=== PATIENT | male | born 1955 | race Caucasian/White ===

== ENCOUNTER 2021-08-21 10:21 | Day surgery (SDC) | payer MEDICARE, OTHER ==
[2021-08-20 12:48] VITALS: BMI 28.5
[~2021-08-21 10:21] MED LIST: LACTATED RINGERS 1,000 ML IV SCH; LIDOCAINE 1% (10MG/ML) FOR IV START INTRADERMA PRN
[2021-08-21 11:30] LABS: Glucose,Whole Blood 92 mg/dL (75-99)
[2021-08-21 11:31] VITALS: RESP 16; TEMP 97.2
[2021-08-21] MEDS ORDERED: PROPOFOL 10 MG/ML 20 ML VIAL IV ONE (12:00)
--- NOTE | 2021-08-21 12:22 | P.PCN ---
Date of Procedure: 08/21/21 Procedure(s) Performed: BRIEF HISTORY: Patient is a 66-year-old pleasant white male scheduled for an elective colonoscopy as a part of screening for colorectal neoplasia. His brother was diagnosed with colon cancer at age 54. PROCEDURE PERFORMED: Colonoscopy with snare polypectomy. PREOPERATIVE DIAGNOSIS: Screening for edelmira cancer and family history of colon cancer. IV sedation per Anesthesia. PROCEDURE: After informed consent was obtained, the patient, was brought into the endoscopy unit. IV sedation was administered by Anesthesia under continuous monitoring. Digital rectal examination was normal. Initially the Olympus CF-160 flexible video colonoscope was then inserted in the rectum, gradually advanced into the cecum without any difficulty. Careful examination was performed as the scope was gradually being withdrawn. Ileocecal valve and the appendiceal orifice were visualized and appeared normal. Prep was excellent. Mucosa of the cecum, appeared normal. There was a 3 mm polyp in the cecum that was removed by snare polypectomy. In the ascending colon there was a 5 mm and 7 mm polyp removed by snare polypectomy. In the transverse colon there was a 3 mm and 7 mm polyps removed by snare polypectomy. Rest of the ascending colon, transverse colon, descending colon, sigmoid colon, and rectum appeared normal. scattered sigmoid diverticulosis seen. Retroflexion was performed in the rectum and no lesions were seen. The patient tolerated the procedure well. IMPRESSION: 5 mm cecal polyp status post snare polyp 5 mm ascending colon polyp status post polypectomy 3 mm and 7 mm transverse colon polyp status post polypectomy Scattered sigmoid diverticula cyst. RECOMMENDATIONS: Findings of this examination were discussed with the patient as well as his family. He was advised to follow with the biopsy results. If the biopsy will adenoma he can have a repeat colonoscopy in 3 years.
[2021-08-21 12:46] VITALS: BP 127/53; PULSE 53
== END 2021-08-21 12:53 | disposition home or self-care (01) ==
LOC: ORWHC2ENDO 10:21
PROVIDERS: ATTEND Internal Medicine Gastroenterology
DX: Z12.11 Encounter for screening for malignant neoplasm of colon (principal); D12.0 Benign neoplasm of cecum; D12.2 Benign neoplasm of ascending colon; D12.3 Benign neoplasm of transverse colon; K57.30 Diverticulosis of large intestine without perforation or abscess without bleeding; Z80.0 Family history of malignant neoplasm of digestive organs; K21.9 Gastro-esophageal reflux disease without esophagitis; Z79.899 Other long term (current) drug therapy
CPT/HCPCS: 45385; 88305; J2704

== ENCOUNTER → 2022-03-24 | Outpatient (CLI) | payer MEDICARE ==
--- NOTE | 2022-03-24 15:23 | CT ---
EXAMINATION TYPE: CT abdomen pelvis wo con DATE OF EXAM: 03/24/2022 COMPARISON: None INDICATION: blood in urine, h/o bladder CA DLP: 945 mGycm, Automated exposure control for dose reduction was used. CONTRAST: 0 mL of Isovue 300. Study performed without Oral Contrast TECHNIQUE: Axial images were obtained from above the diaphragm to the pubic rami in the axial plane a t 5 mm thick sections. Reconstructed images are reviewed on the computer in the coronal plane. FINDINGS: Limited CT sections are obtained the lung bases. The lung bases are clear. Coronary artery calcific ation is present. Minimal pericardial effusion is present. CT ABDOMEN: Liver: Normal Spleen: Normal Pancreas: Normal Adrenal glands: The adrenal glands are normal. Gallbladder: Normal Kidneys: No masses are evident. No hydronephrosis is present. No cysts are present. There is a 1.4 cm nonobstructing renal stone within the mid right kidney. There may be a nonobstructing ureteral st one within the proximal right ureter measuring 0.3 cm. In the inferior pole nonobstructing 0.3 cm rig ht renal stone is present. A nonobstructing 0.4 cm inferior pole left renal stone is present. Nonobst ructing renal stones may be within the mid left renal collecting system measuring 0.6-0.5 cm in size. Some renal artery calcification may be present. Aorta: Vascular calcification is within the aorta. Inferior vena cava: Normal. CT PELVIS: Loops of bowel within the abdomen and pelvis are normal. There are scattered diverticuli within the c olon. No suspicious adjacent inflammatory changes. This study is without oral contrast limiting bowel evaluation Appendix: Normal as visualized. Urinary bladder: Normal. No suspicious wall thickening masses or urinary bladder calcifications are i dentified. Additional workup can be performed as clinically indicated. Genitourinary structures: Prostate contains calcification. Osseous structures: No suspicious lytic or sclerotic lesions. Punctate bone island may be within the medial right iliac wing. Facet changes are noted within the lumbar spine. IMPRESSIONS: 1. Nonobstructing bilateral renal stones. 2. Diverticulosis without acute diverticulitis. 3. No suspicious changes in urinary bladder. Additional workup can be performed as clinically indicat ed.
== END | disposition home or self-care (01) ==
LOC: RADCTMAIN 14:46
PROVIDERS: ATTEND Family Medicine
DX: N20.0 Calculus of kidney (principal); K57.30 Diverticulosis of large intestine without perforation or abscess without bleeding; Z85.51 Personal history of malignant neoplasm of bladder
CPT/HCPCS: 74176

== ENCOUNTER → 2022-08-07 | Outpatient (CLI) | payer MEDICARE ==
--- NOTE | 2022-08-07 09:02 | XR ---
EXAMINATION TYPE: XR KUB DATE OF EXAM: 08/07/2022 COMPARISON: None INDICATION: Renal calculus TECHNIQUE: Single view abdomen frontal projection FINDINGS: As a normal colonic bowel gas pattern. Psoas margins are normal. No organomegaly is present. There is a 1.5 cm mid right renal calculus. Couple of smaller calculi may be at the left renal pelv is measuring up to 0.7 cm. IMPRESSION: 1. Bilateral renal calculi. Largest on the right measures 1.5 cm.
== END | disposition home or self-care (01) ==
LOC: RADXRMAIN 08:30
PROVIDERS: ATTEND Urology
DX: N20.0 Calculus of kidney (principal)
CPT/HCPCS: 74018

== ENCOUNTER → 2023-07-17 | Outpatient (CLI) | payer MEDICARE ==
--- NOTE | 2023-07-17 10:37 | US ---
EXAMINATION TYPE: US abdomen complete DATE OF EXAM: 07/17/2023 COMPARISON: NONE CLINICAL INDICATION: Male, 68 years old with history of R10.9 UNSPECIFIED ABDOMINAL PAIN; ABd pain, a brunilda reflux TECHNIQUE: Multiple sonographic images of the abdomen are obtained. FINDINGS: EXAM MEASUREMENTS: Liver Length: 15.5 cm Gallbladder Wall: 0.3 cm CBD: 0.4 cm Spleen: 9.1 cm Right Kidney: 9.7 x 5.2 x 5.4 cm Left Kidney: 11.6 x 4.6 x 6.9 cm [employer] NOTES: bowel gas limits some images Pancreas: limited views wnl Liver: wnl Gallbladder: multiple stones, borderline wall Evidence for sonographic Jason's sign: no CBD: wnl Spleen: wnl Right Kidney: 1.5 x 1.5cm mid pole stone seen Left Kidney: wnl Upper IVC: wnl Abd Aorta: larger caliber throughout with no AAA The liver is homogenous. The intrahepatic portion of the IVC and proximal abdominal aorta are within normal limits. There is no evidence of cholelithiasis. Common bile duct is unremarkable. The visu alized portions of the pancreas are homogenous. The spleen is unremarkable. Kidneys are symmetric a nd free of hydronephrosis. No renal lesions are seen. IMPRESSION: 1. No evidence for acute process 2. Cholelithiasis.
== END | disposition home or self-care (01) ==
LOC: RADUSWWP 07:30
PROVIDERS: ATTEND Family Medicine
DX: K80.20 Calculus of gallbladder without cholecystitis without obstruction (principal); K21.9 Gastro-esophageal reflux disease without esophagitis
CPT/HCPCS: 76700

== ENCOUNTER → 2024-07-01 | Outpatient (CLI) | payer MEDICARE ==
--- NOTE | 2024-07-01 11:26 | CT ---
EXAMINATION TYPE: CT sinus wo con CT DLP: 474.4 mGycm, Automated exposure control for dose reduction was used. DATE OF EXAM: 07/01/2024 11:08 AM COMPARISON: None. CLINICAL INDICATION:Male, 69 years old with history of J32.9 CHRONIC SINUSITIS, UNSPECIFIED; PHH, Chr onic sinusitis. CONTRAST: None. TECHNIQUE: Multiple thin axial images were obtained through the paranasal sinuses without the use of IV contrast. Additional coronal and sagittal reformatted images were submitted for evaluation. FINDINGS: Frontal sinuses: Normally developed and aerated. Frontal Recess: Clear Maxillary Sinuses: Normally developed. Minimal mucosal thickening of the right maxillary sinus with a polypoid lesion within the inferior aspect measuring up to 3.3 cm. Mild mucosal thickening in inferi or left maxillary sinus with 2 polypoid lesions measuring 1.6 and 1.4 cm inferiorly. Maxillary Infundibula([facility]): Both are mildly narrowed but patent due to mucosal thickening. No Mignon cells. Ethmoid sinuses: Normally developed no mucosal thickening of the ethmoid sinuses. Ethmoidal notch: Pr otected and abutting the lateral lamina. Sphenoid sinuses: Normally developed and aerated. There is sellar sphenoid sinus pneumatization witho ut evidence of dehiscence. No dehiscence of carotid canal. No evidence of optic nerve dehiscence wit hin the sphenoid sinus. No evidence of Onodi cells. Sphenoethmoidal recesses: Clear. Nasal septum: Within normal limits.. Nasal Turbinates: Bilateral jorge bullosa. Mastoid air cells & middle ears: The air cells are clear. The middle ears are grossly unremarkable. Modified Soft tissues & Brain: Partially seen without gross abnormality. Right aphakia. The left glob e is intact. Other: Cribriform plate demonstrates symmetric Keros classification type 2 cribriform plate. No evidence of bony dehiscence of skull base. Lamina papyracea is intact without evidence of remote orbital fracture or orbital prolapse into the e thmoid sinus. Calcification of the intracranial vasculature. IMPRESSION: 1. Mild paranasal sinus disease with a few polypoid lesions within the inferior bilateral maxillary s inuses probably representing mucous retention cysts versus polyps. 2. Mild narrowing of the bilateral maxillary infundibula due to mucosal thickening. The frontonasal a nd sphenoethmoidal recesses are clear. [facility], , 07/01/2024 11:24 AM
== END | disposition home or self-care (01) ==
LOC: RADCTMAIN 10:49
PROVIDERS: ATTEND Family Medicine
DX: J32.9 Chronic sinusitis, unspecified (principal); J34.89 Other specified disorders of nose and nasal sinuses
CPT/HCPCS: 70486